=== PATIENT | male | born 1990 | race Caucasian/White ===

== ENCOUNTER → 2025-02-20 09:14 | Outpatient (CLI) | payer OTHER, SELFPAY ==
--- OUTSIDE RECORDS SUMMARY | 2025-02-20 09:16 | XMS_ITS | Clinical Summary ---
Author Organization [facility] Address [address] [place] [address] Phone Care Team Providers Care Store Standards Associate Name Role Phone Saima Li Primary Care Provider [phone] Allergies No known active allergies Medications No known medications Active Problems Problem Noted Date Diagnosed Date Muscle strain of left hip 03/30/2022 Strain of muscle of right hip 03/30/2022 Surgical History Surgery Date Site/Laterality Comments WISDOM TOOTH EXTRACTION Family History Medical History Relation Name Comments Hypertension Father intestint Mother Diabetes Paternal Grandmother Relation Name Status Comments Father Mother Paternal Grandmother Social History Tobacco Use Types Packs/Day Years Used Date Smoking Tobacco: Never Smokeless Tobacco: Never Alcohol Use Standard Drinks/Week Comments Yes 2 (1 standard drink = 0.6 oz pur e alcohol) social PHQ-2 Answer Date Recorded PHQ-2 Total Score 0 03/30/2022 Sex and Gender Information Value Date Recorded Sex Assigned at Not on file Legal Sex Male 7:41 AM EDT Gender Identity Not on file Sexual Orientation Not on file Obstetrics History Last Filed Vital Signs Vital Sign Reading Time Taken Comments Blood Pressure 110/70 03/30/2022 8:25 AM EDT Pulse 72 03/30/2022 8:25 AM EDT Temperature 36.7 C (98.1 F) 03/30/2022 8:25 AM EDT Respiratory Rate 12 03/30/2022 8:25 AM EDT Oxygen Saturation 99% 03/30/2022 8:25 AM EDT Inhaled Oxygen Concentration - - Weight 92.3 kg (203 lb 6.4 oz) 03/30/2022 8:25 A M EDT Height 176.5 cm (5' 9.5 ) 03/30/2022 8:25 AM EDT Body Mass Index 29.61 03/30/2022 8:25 AM EDT Plan of Treatment Health Maintenance Due Date Last Done Comments Hepatitis B Vaccine (2 of 3 - 3-dose series) 06/08/1999 05/11/1999 DTaP/TDaP/Td (1 - Tdap) 11/03/2011 Annual Wellness Exam 03/30/2023 03/30/2022 COVID-19 Vaccine ( - 2023-2 5 season) 2024 Influenza Vaccine (Season Ended) 2025 Meningococcal B Vaccine Aged Out No l onger eligible based on patient's age to complete this topic Pneumococcal Vaccine 0-49 Aged Out No longer eligible based on patient's age to complete this topic Goals Goal Patient Goal Type Associated Problems Recent Progress Patient-Stated? Author Maintain a healthy diet, exercise regularly and maintain an ideal body weight General No Fanny Jordan MA Receiving Teller Insurance * Guarantor: Familia Skaggs Account Type Relation to Patient Date of Phone Billing Address [place] Personal Family Self Care Teams Store Standards Associate Relationship Specialty Start Date End Date Saima Li DO [address] [place] [address] PCP - General Internal Medicine 03/30/22
--- OUTSIDE RECORDS SUMMARY | 2025-02-20 09:16 | XMS_ITS | Patient Health Record ---
Author Organization [facility] Address [address] [place] [address] Care Team Providers Care Electronics Lead Name Role Phone NO PCP Primary Care Provider UnavailIda Cervantes Unavailable [phone] Arsalan Harding Unavailable [phone] Britany hZu Unavailable [phone] Allergies No Known Allergies Results Component Value Reference Range Notes Rapid Strep Screen (IH) Reviewed date:07/20/2024 11:10:39 AM Interpretation:Positive Performing Lab: Notes/Report: Positive Positive positive Negative - Positive Reason For Referral No Information Social History Tobacco Use: Social History Observation Description Date Details (start date - stop date) Never Smoker NA - NA Tobacco Control (Standard) Question Answer Notes Tobacco use: Nonsmoker Problems No Known Problems Vital Signs Temperature 97.0 degrees Fahrenheit 08/22/2024 Respiratory Rate 16 /min 08/22/2024 Oximetry 98 07/20/2024 Blood pressure diastolic 78 mm Hg 08/22/2024 Height 69 in 08/22/2024 Blood pressure systolic 118 mm Hg 08/22/2024 Weight 225 lbs 08/22/2024 BMI 33.22 kg/m2 08/22/2024 Encounters Encounter Location Date Provider Diagnosis [id number] [employer] [facility] [address] [place] [address] 07/09/2024 Arsalan Harding Other non-recurrent acute nonsuppurative otitis media of left ear H65.192 ; Acute non-recurrent sinusitis, unspecified location J01.90 and Elevated blood pressure reading without diagnosis of hypertension R03.0 [id number] [employer] [facility] [address] [place] [address] 07/11/2024 Britany Zhu Acute bacterial conjunctivitis of right eye H10.31 [id number] [employer] [facility] [address] [place] [address] 07/20/2024 Arsalan Harding Streptococcal pharyngitis J02.[address] [facility] [address] [place] [address] 07/20/[id number] [facility] [address] [place] [address] 07/20/2024 Arsalan Harding [id number] [employer] [facility] [address] [place] [address] 08/22/2024 Ida Mata Acute bacterial conjunctivitis of left eye H10.32 Assessments Encounter Date Diagnosis (ICD Code) Assessment Notes Treatment Notes Treatment Clinical Notes Section Notes 07/09/2024 Acute non-recurrent sinusitis, unspecified location (ICD-10 - J01.90) Acute Sinusitis: Care Instructions material was printed, The Sinuses: Anatomy Sketch material was printed 07/09/2024 Other non-recurrent acute nonsuppurative otitis media of left ear (ICD-10 - H65.192) Stay well hydrated, get rest Take OTC pain reliever such as tylenol/acetami nophen as needed for fever or pain management- follow all package instructions for proper use and dose. Stay home and away from others at least 24 hours from last fever or fever like symptoms (chills, body aches, sweats) off of fever torch straightener and heater medication. Go to the ER for serious symptoms such as chest pains, trouble breathing, confusion, lethargy, etc. Call the clinic with any questions. Suspected ABRS with complication of AOM 07/11/2024 Acute bacterial conjunctivitis of right eye (ICD-10 - H10.31) Complete the entire course of antibiotics as prescribed, even when symptoms have improved, to prevent a relapse of infection and the development of antibiotic resistance. Wash your hands well with soap and water. Apply drops or ointment per order without touching the bottle or tube to the eye as this can contaminate the container. 07/20/2024 Streptococcal pharyngitis (ICD-10 - J02.0) Stay well hydrated, get rest Replace toothbrush 1-2 days after starting antibiotic Take OTC pain reliever such as tylenol/acetami nophen as needed for fever or pain management- follow all package instructions for proper use and dose. Stay home and away from others at least 24 hours from last fever and approx 24 hours from first dose of antibiotic Go to the ER for serious symptoms such as chest pains, trouble breathing, severe throat swelling, confusion, lethargy, etc. Call the clinic with any questions. 08/22/2024 Acute bacterial conjunctivitis of left eye (ICD-10 - H10.32) Complete the entire course of antibiotics as prescribed, even when symptoms have improved, to prevent a relapse of infection and the development of antibiotic resistance. Wash your hands well with soap and water. Apply drops or ointment per order without touching the bottle or tube to the eye as this can contaminate the container. 07/09/2024 Elevated blood pressure reading without diagnosis of hypertension (ICD-10 - R03.0) Learning About High Blood Pressure material was printed, High Blood Pressure: Care Instructions material was printed 07/09/2024 Other Amoxicillin/Cla vulanate Oral Tablet (AMOXICILLIN/CL AVULANIC ACID - ORAL) material was printed, Brompheniramine /Dextromethorph an/Pseudoephedr ine Oral Solution (DEXTROMETHORPH AN/DECONGESTANT /ANTIHISTAMINE - ORAL) material was printed NOTE to Provider of Record: MIPS recommendations for Pre Hypertensive Reading in the past 12 months (120-129 systolic or >/= 80 diastolic): 1) Recommend to rescreen blood pressure in 2-6 months AND 2) Provide and document recommendations for non-pharmacologic interventions in the Preventative Medicine window, which may include Lifestyle recommendations, Physical Activity recommendations, Weight Reduction Recommendations, or Dietary Recommendations OR Provide and document a referral to alternate care provider 08/22/2024 Other Recommend a daily anti-histamine, such as Zyrtec or Claritin, 10 mg a day, for the next 3-4 weeks. Follow up for any concerns or for worsening symptoms. Plan Of Treatment No Information Insurance Providers Payer Name Payer Address Payer Phone Subscriber Number Group Number Insured Name Patient Relationship to Insured Coverage Start Date Coverage End Date [facility] [address] [place] [address] [id number] Familia Skaggs Self - patient is the insured Medical (General) History Medical History History ICD Code denies Surgical History Surgery Date(Month/Year) adenoidectomy wisdom teeth extraction Hospitalization History Reason Date(Month/Year) viral myositis
== END ==
LOC: SL 09:14
PROVIDERS: PCP Family Medicine; Visit Provider Family Medicine
DX: R40.0 Somnolence (principal); R53.83 Other fatigue
CPT/HCPCS: G0399